=== PATIENT | male | born 1965 | race American Indian/Alaskan Native ===

== ENCOUNTER 2020-04-06 09:45 | Day surgery (SDC) | payer OTHER ==
[2020-04-05 11:14] LABS: CLARITY,URINE CLEAR (Clear); COLOR,URINE YELLOW (Yellow); GLUCOSE, URINE NEGATIVE (Neg); KETONES,URINE NEGATIVE (Neg); LEUKOCYTE ESTERASE ,URINE NEGATIVE (Neg); NITRITES, URINE NEGATIVE (Neg); OCCULT BLOOD,URINE NEGATIVE (Neg); PROTEIN,URINE NEGATIVE (Neg); UROBILINOGEN,URINE 0.2 E.U/dL (0.2-1.0)
[2020-04-05 11:15] LABS: UA COLLECTION TYPE CLN CATCH MIDSTREAM
[2020-04-05 11:18] LABS: BASOPHILS # (AUTO) 0.1 X10'3 (0-0.2); BASOPHILS % (AUTO) 0.7 % (0-1); EOSINOPHILS # (AUTO) 0.3 X10'3 (0-0.9); EOSINOPHILS % (AUTO) 3.7 % (0-6); LYMPHOCYTES # (AUTO) 2.8 X10'3 (1.1-4.8); LYMPHOCYTES % (AUTO) 33.2 % (21-51); MEAN CORPUSCULAR HEMOGLOBIN 31.7 PG (27.0-31.0); MEAN CORPUSCULAR HGB CONC 33.7 g/dL (33.0-36.5); MEAN CORPUSCULAR VOLUME 94.1 FL (78-98); MONOCYTES # (AUTO) 0.7 X10'3 (0-0.9); MONOCYTES % (AUTO) 8.7 % (2-12); NEUTROPHILS # (AUTO) 4.6 X10'3 (1.8-7.7); NEUTROPHILS % (AUTO) 53.7 % (42-75); PRE OP HEMATOCRIT 47.2 % (42.0-52.0); PRE OP HEMOGLOBIN 15.9 g/dL (14.0-17.9); PRE OP PLATELET COUNT 244 X10'3 (140-440); RED BLOOD COUNT 5.02 X10'6 (4.70-6.10); RED CELL DISTRIBUTION WIDTH 13.7 % (11.5-14.5)
[2020-04-05 11:25] LABS: ALBUMIN 3.7 G/DL (3.4-5.0); ALKALINE PHOSPHATASE 107 IU/L (46-116); BLOOD UREA NITROGEN 12 MG/DL (7-18); BUN/CREATININE RATIO 10.2 (5.4-32.0); CALCIUM 8.6 MG/DL (8.5-10.1); CHLORIDE 104 MMOL/L (99-107); CREATININE 1.18 MG/DL (0.60-1.10); PRE OP ALT 29 U/L (30-65); PRE OP ANION GAP 7 (8-16); PRE OP AST 20 U/L (10-37); PRE OP BILIRUB, TOTAL 0.4 MG/DL (0.0-1.0); PRE OP GLUCOSE 94 MG/DL (70-104); PRE OP POTASSIUM 3.9 MMOL/L (3.4-5.1); PRE OP SODIUM 141 MMOL/L (135-145); TOTAL CARBON DIOXIDE 30.1 MMOL/L (24-32); TOTAL PROTEIN 7.5 G/DL (6.4-8.2); eGFR 64 ML/MIN
[2020-04-06] VITALS (12 sets, daily range): BP systolic 117–130; BP diastolic 76–92
[~2020-04-06] VITALS: Ht 182.9 cm; Wt 90.7 kg
[~2020-04-06 09:45] MED LIST: ERGO400C PO; NORT25CA PO; OMEP10CA5 PO; THYR30TA2 PO; ceFAZolin 2gm in dextrose, iso 50 ML IV ONE; famotidine 20mg tablet PO ONE; ringers solution, lacted 1,000 ML IV SCH
[2020-04-06] MEDS ORDERED: bacitracin 15gm ointment TP ONE (11:50)
[2020-04-06] MEDS ORDERED: BUPIVAcaine/PF 2.5 mg/ml (0.25%) 30ml vial ONE (11:50)
[2020-04-06] MEDS ORDERED: sevoflurane 250ml liquid IH ONE (12:19)
[2020-04-06] MEDS ORDERED: fentaNYL/PF 50MCG/1 ML 2ML syringe ONE (12:26)
[2020-04-06] MEDS ORDERED: midazolam 2 mg/2 ml injection ONE (12:47)
[2020-04-06] MEDS ORDERED: dexamethasone sod phosphate 4mg/ml inj. ONE (13:02)
[2020-04-06] MEDS ORDERED: propofol inj 20 ML IV ONE (13:02)
[2020-04-06] MEDS ORDERED: LIDOcaine 2% (20mg/ml) 5ml vial ONE (13:02)
[2020-04-06] MEDS ORDERED: ROPIVAcaine 0.5% (5mg/ml) 30ml vial ONE ×2 (13:02)
[2020-04-06] MEDS ORDERED: ondansetron/PF 4mg/2ml inj ONE (13:03)
[2020-04-06] MEDS ORDERED: ringers solution, lacted 1,000 ML IV SCH (13:11)
[2020-04-06] MEDS ORDERED: morphine 4 MG/ML inj SYRINge IV PRN (13:15)
[2020-04-06] MEDS ORDERED: HYDROmorphone inj. 0.5 MG/0.5 ML DISP.SYRIN IV PRN ×2 (13:15)
[2020-04-06] MEDS ORDERED: acetaminophen 1,000mg/100ml IV 100 ML IV PRN (13:15)
[2020-04-06] MEDS ORDERED: proCHLORperazine 10 MG/2 ml inj IV PRN (13:15)
[2020-04-06] MEDS ORDERED: morphine 2 MG/ML inj. syringe IV PRN (13:15)
[2020-04-06] MEDS ORDERED: ondansetron/PF 4mg/2ml inj IV PRN (13:15)
[2020-04-06] MEDS ORDERED: HYDROcodone/acetaminophen 10/325mg tab PO ONE (15:20)
--- NOTE | 2020-04-06 15:23 | NUR ---
PT IS READY FOR DISCHARGE, BUT STATES HE HAS A 2 HOUR RIDE HOME AND NO PAIN MEDICATIONS WITH HIM. RN RECEIVED A VERBAL ORDER FOR A NORCO FROM DR COX PRIOR TO DISCHARGE.
--- NOTE | 2020-04-06 15:24 | NUR ---
PT MEETS DISCHARGE CRITERIA. PT IS AWAKE, UP INDEP'LY WITH USE OF CRUTCHES MAINTAINING NON WBING STATUS, IV REMOVED, DISCHARGE INSTRUCTIONS REVIEWED WITH PT AND GIVEN HARD COPY, WILY FLUIDS.
== END 2020-04-06 15:35 | disposition home or self-care (01) ==
LOC: PAS 09:45
PROVIDERS: ATTEND Podiatrist Foot & Ankle Surgery
DX: S82.861A Displaced Maisonneuve's fracture of right leg, initial encounter for closed fracture (principal); S93.421A Sprain of deltoid ligament of right ankle, initial encounter; G89.18 Other acute postprocedural pain; G47.33 Obstructive sleep apnea (adult) (pediatric); K21.9 Gastro-esophageal reflux disease without esophagitis; M19.90 Unspecified osteoarthritis, unspecified site; E03.9 Hypothyroidism, unspecified; Z88.8 Allergy status to other drugs, medicaments and biological substances; Z91.041 Radiographic dye allergy status; Z79.899 Other long term (current) drug therapy; Z98.890 Other specified postprocedural states; Z72.89 Other problems related to lifestyle; Z79.82 Long term (current) use of aspirin; Z83.3 Family history of diabetes mellitus; Z80.9 Family history of malignant neoplasm, unspecified; X58.XXXA Exposure to other specified factors, initial encounter; Y93.89 Activity, other specified; Y92.89 Other specified places as the place of occurrence of the external cause; Y99.8 Other external cause status
CPT/HCPCS: 27695; 27829; 36415; 64445; 64447; 73600; 76000; 80053; 81003; 82948; 85025; 93005; A6223; C1713; J0131; J1100; J1170; J2001; J2250; J2405; J2704; J3010; J3490; J7120; A4215; A4618; A6253; A6446; A6449; A7000; J2795

== ENCOUNTER 2021-11-12 10:33 | Outpatient (CLI) | payer OTHER ==
[2021-11-05 15:02] LABS: BASOPHILS # (AUTO) 0.1 X10'3 (0-0.2); BASOPHILS % (AUTO) 1.3 % (0-1); EOSINOPHILS # (AUTO) 0.3 X10'3 (0-0.9); EOSINOPHILS % (AUTO) 4.2 % (0-6); HEMATOCRIT 44.5 % (42.0-52.0); HEMOGLOBIN 15.1 g/dl (14.0-17.9); LYMPHOCYTES # (AUTO) 2.2 X10'3 (1.1-4.8); LYMPHOCYTES % (AUTO) 34.8 % (21-51); MEAN CORPUSCULAR HEMOGLOBIN 31.9 PG (27.0-31.0); MEAN CORPUSCULAR HGB CONC 33.9 g/dL (33.0-36.5); MEAN CORPUSCULAR VOLUME 94.2 FL (78-98); MEAN PLATELET VOLUME 7.6 FL (7.4-10.4); MONOCYTES # (AUTO) 0.6 X10'3 (0-0.9); MONOCYTES % (AUTO) 9.7 % (2-12); NEUTROPHILS # (AUTO) 3.2 X10'3 (1.8-7.7); PLATELET COUNT 284 X10'3 (140-440); RED BLOOD COUNT 4.72 X10'6 (4.70-6.10); RED CELL DISTRIBUTION WIDTH 13.9 % (11.5-14.5); WHITE BLOOD COUNT 6.4 X10'3 (4.5-11.0)
[2021-11-05 15:16] LABS: ALBUMIN 3.4 G/DL (3.4-5.0); ANION GAP 10 (8-16); BLOOD UREA NITROGEN 15 MG/DL (7-18); BUN/CREATININE RATIO 12.4 (5.4-32.0); CALCIUM 8.7 MG/DL (8.5-10.1); CHLORIDE 106 MMOL/L (99-107); CREATININE 1.21 MG/DL (0.60-1.10); GLUCOSE 109 MG/DL (70-104); POTASSIUM 4.3 MMOL/L (3.5-5.1); SODIUM 143 MMOL/L (135-145); TOTAL CARBON DIOXIDE 26.7 MMOL/L (24-32); eGFR 62 ML/MIN
[~2021-11-12 10:33] MED LIST changes: -ceFAZolin 2gm in dextrose, iso 50 ML IV ONE; -famotidine 20mg tablet PO ONE; -ringers solution, lacted 1,000 ML IV SCH
== END 2021-11-12 23:59 | disposition home or self-care (01) ==
LOC: RAD 10:33
PROVIDERS: ATTEND Thoracic Surgery (Cardiothoracic Vascular Surgery)
DX: R22.1 Localized swelling, mass and lump, neck (principal)
CPT/HCPCS: 36415; 70540; 80048; 85025

== ENCOUNTER 2021-11-25 05:43 | Inpatient (IN) | payer OTHER ==
[2021-11-22 13:18] LABS: BASOPHILS # (AUTO) 0.1 X10'3 (0-0.2); BASOPHILS % (AUTO) 0.8 % (0-1); EOSINOPHILS # (AUTO) 0.2 X10'3 (0-0.9); EOSINOPHILS % (AUTO) 2.4 % (0-6); LYMPHOCYTES # (AUTO) 2.2 X10'3 (1.1-4.8); LYMPHOCYTES % (AUTO) 32.8 % (21-51); MEAN CORPUSCULAR HEMOGLOBIN 31.4 PG (27.0-31.0); MEAN CORPUSCULAR HGB CONC 33.4 g/dL (33.0-36.5); MEAN PLATELET VOLUME 7.3 FL (7.4-10.4); MONOCYTES # (AUTO) 0.7 X10'3 (0-0.9); MONOCYTES % (AUTO) 9.9 % (2-12); NEUTROPHILS # (AUTO) 3.6 X10'3 (1.8-7.7); NEUTROPHILS % (AUTO) 54.1 % (42-75); PRE OP HEMATOCRIT 47.1 % (42.0-52.0); PRE OP HEMOGLOBIN 15.8 g/dL (14.0-17.9); PRE OP PLATELET COUNT 345 X10'3 (140-440); RED BLOOD COUNT 5.01 X10'6 (4.70-6.10); RED CELL DISTRIBUTION WIDTH 13.8 % (11.5-14.5)
[2021-11-22 13:25] LABS: PRE OP PROTIME 10.2 SECONDS (9.0-12.0)
[2021-11-22 13:32] LABS: ALBUMIN 3.5 G/DL (3.4-5.0); ALBUMIN/GLOBULIN RATIO 0.9 (1.1-1.5); ALKALINE PHOSPHATASE 98 IU/L (46-116); BLOOD UREA NITROGEN 10 MG/DL (7-18); BUN/CREATININE RATIO 10.2 (5.4-32.0); CALCIUM 8.8 MG/DL (8.5-10.1); CHLORIDE 106 MMOL/L (99-107); CREATININE 0.98 MG/DL (0.60-1.10); PRE OP ALT 35 U/L (30-65); PRE OP ANION GAP 8 (8-16); PRE OP AST 23 U/L (10-37); PRE OP BILIRUB, TOTAL 0.6 MG/DL (0.0-1.0); PRE OP GLUCOSE 106 MG/DL (70-104); PRE OP POTASSIUM 4.1 MMOL/L (3.4-5.1); PRE OP SODIUM 141 MMOL/L (135-145); TOTAL CARBON DIOXIDE 26.6 MMOL/L (24-32); TOTAL PROTEIN 7.6 G/DL (6.4-8.2); eGFR 79 ML/MIN
[2021-11-22 14:14] LABS: CLARITY,URINE CLEAR (Clear); COLOR,URINE YELLOW (Yellow); GLUCOSE, URINE NEGATIVE (Neg); KETONES,URINE NEGATIVE (Neg); LEUKOCYTE ESTERASE ,URINE NEGATIVE (Neg); NITRITES, URINE NEGATIVE (Neg); OCCULT BLOOD,URINE NEGATIVE (Neg); PH,URINE 7.5 (4.8-8.0); PROTEIN,URINE NEGATIVE (Neg)
[2021-11-22 14:16] LABS: UA COLLECTION TYPE CLN CATCH MIDSTREAM
[2021-11-25] VITALS (20 sets, daily range): BP systolic 109–136; BP diastolic 59–88
[~2021-11-25] VITALS: Ht 182.9 cm; Wt 88.9 kg
[~2021-11-25 05:43] MED LIST changes: -ERGO400C PO; +NO HOME MEDS; -NORT25CA PO; -OMEP10CA5 PO; -THYR30TA2 PO; +famotidine 20mg tablet PO ONE; +ringers solution, lacted 1,000 ML IV SCH
[2021-11-25] MEDS ORDERED: LIDOcaine 1% 30ml preserv. free vial ONE ×2 (06:39→08:49)
[2021-11-25] MEDS ORDERED: ceFAZolin 1000mg inj ONE (06:39)
[2021-11-25] MEDS ORDERED: epiNEPHrine 1 mg/ml inj ONE (06:39)
[2021-11-25] MEDS ORDERED: BUPIVAcaine 0.5% inj/PF 30 ML ONE ×2 (06:39→08:49)
[2021-11-25] MEDS ORDERED: cefazolin/dext.iso 2gm/50ml 50 ML IV ONE (06:58)
[2021-11-25] MEDS ORDERED: BUPIVAcaine/PF 5 MG/ML 10ML VIAL IJ ONE (07:32)
[2021-11-25] MEDS: morphine 2 MG/ML inj. syringe IV PRN ×3 (07:35→16:18)
[2021-11-25] MEDS ORDERED: fentaNYL /PF 50mcg/ml 5ml ampule ONE (07:58)
[2021-11-25] MEDS ORDERED: MIDAZolam 1 MG/ML 5ML VIAL ONE (07:58)
[2021-11-25] MEDS ORDERED: proCHLORperazine 10 MG/2 ml inj IV PRN (09:40)
[2021-11-25] MEDS ORDERED: ringers solution, lacted 1,000 ML IV SCH (09:40)
[2021-11-25] MEDS ORDERED: HYDROmorphone/PF 0.2 MG/ML SYRINGE IV PRN ×2 (09:40)
[2021-11-25] MEDS ORDERED: ondansetron/PF 4mg/2ml inj IV PRN ×2 (09:40→10:40)
[2021-11-25] MEDS ORDERED: morphine 2 MG/ML inj. syringe IV PRN ×2 (09:40→10:40)
[2021-11-25] MEDS ORDERED: rocuronium 10mg/ml inj IV ONE (10:27)
[2021-11-25] MEDS ORDERED: dexamethasone sod phosphate 4mg/ml inj. ONE (10:27)
[2021-11-25] MEDS ORDERED: propofol inj 20 ML IV ONE (10:27)
[2021-11-25] MEDS ORDERED: ondansetron/PF 4mg/2ml inj ONE (10:27)
[2021-11-25] MEDS ORDERED: glycopyrrolate 0.2mg/ml inj ONE (10:27)
[2021-11-25] MEDS ORDERED: neostigmine methylsulfate 1 MG/ML 10ml vial ONE (10:28)
[2021-11-25] MEDS ORDERED: metoclopramide 5 mg/ml inj IV PRN (10:40)
[2021-11-25] MEDS ORDERED: naloxone 0.4 mg/ml inj IV PRN (10:40)
[2021-11-25] MEDS ORDERED: morphine 4 MG/ML inj SYRINge IV PRN (10:40)
[2021-11-25] MEDS ORDERED: HYDROcodone/acetaminophen 10/325mg tab PO PRN (10:40)
[2021-11-25] MEDS ORDERED: CADD PCA waste documentation MC PRN (10:40)
[2021-11-25] MEDS ORDERED: BUPIVAcaine 0.5% inj/PF 30 ml vial IJ ONE (10:51)
[2021-11-25] MEDS: morphine 4 MG/ML inj SYRINge IV PRN ×2 (11:17→11:49)
--- NOTE | 2021-11-25 12:12 | NUR ---
Report called to receiving nurse. Transferred via [facility] . Special Issues communicated to receiving nurse.AWAKENS TO VOICE. VITALS STABLE. DRESSING DI. STATES PAIN IMPROVING. TO MARIANA RM [id number] AT THIS TIME.
[2021-11-25] MEDS: ceFAZolin inj. 1,000 MG in dextrose 5%-water 50ml 50 ML IV SCH (16:26)
[2021-11-25] MEDS: gabapentin 300mg capsule PO SCH (19:21)
[2021-11-25] MEDS: HYDROcodone/acetaminophen 10/325mg tab PO PRN (19:22)
[2021-11-25] MEDS: docusate sod 100mg capsule PO SCH (19:23)
[2021-11-25] MEDS: ketorolac tromethamine 15mg/ml inj. IV PRN (21:47)
[2021-11-26] MEDS: ceFAZolin inj. 1,000 MG in dextrose 5%-water 50ml 50 ML IV SCH ×2
[2021-11-26] MEDS ORDERED: ceFAZolin inj. 1,000 MG in dextrose 5%-water 50ml 50 ML IV SCH (01:03)
[2021-11-26] MEDS: HYDROcodone/acetaminophen 10/325mg tab PO PRN (01:34)
[2021-11-26 02:00] VITALS: BP 105/49
[2021-11-26] MEDS: ketorolac tromethamine 15mg/ml inj. IV PRN (05:19)
[2021-11-26 06:00] VITALS: BP 104/67
[2021-11-26 06:29] LABS: BASOPHILS % (AUTO) 0.3 % (0-1); EOSINOPHILS % (AUTO) 0.2 % (0-6); HEMATOCRIT 42.5 % (42.0-52.0); HEMOGLOBIN 14.2 g/dl (14.0-17.9); LYMPHOCYTES # (AUTO) 2.2 X10'3 (1.1-4.8); LYMPHOCYTES % (AUTO) 15.7 % (21-51); MEAN CORPUSCULAR HEMOGLOBIN 31.7 PG (27.0-31.0); MEAN CORPUSCULAR HGB CONC 33.5 g/dL (33.0-36.5); MEAN CORPUSCULAR VOLUME 94.7 FL (78-98); MEAN PLATELET VOLUME 7.8 FL (7.4-10.4); MONOCYTES # (AUTO) 1.3 X10'3 (0-0.9); MONOCYTES % (AUTO) 9.4 % (2-12); NEUTROPHILS # (AUTO) 10.3 X10'3 (1.8-7.7); NEUTROPHILS % (AUTO) 74.4 % (42-75); PLATELET COUNT 317 X10'3 (140-440); RED BLOOD COUNT 4.49 X10'6 (4.70-6.10); RED CELL DISTRIBUTION WIDTH 13.7 % (11.5-14.5); WHITE BLOOD COUNT 13.8 X10'3 (4.5-11.0)
[2021-11-26 06:38] LABS: ALBUMIN 2.9 G/DL (3.4-5.0); ALBUMIN/GLOBULIN RATIO 0.8 (1.1-1.5); ALKALINE PHOSPHATASE 73 IU/L (46-116); ANION GAP 6 (8-16); BLOOD UREA NITROGEN 16 MG/DL (7-18); BUN/CREATININE RATIO 16.2 (5.4-32.0); CALCIUM 8.4 MG/DL (8.5-10.1); CHLORIDE 105 MMOL/L (99-107); CREATININE 0.99 MG/DL (0.60-1.10); GLUCOSE 137 MG/DL (70-104); POTASSIUM 3.8 MMOL/L (3.5-5.1); SODIUM 138 MMOL/L (135-145); TOTAL CARBON DIOXIDE 27.2 MMOL/L (24-32); TOTAL PROTEIN 6.4 G/DL (6.4-8.2); eGFR 78 ML/MIN
[2021-11-26 06:44] LABS: ALANINE AMINOTRANSFERASE 24 U/L (12-78); ASPARTATE AMINO TRANSFERASE 31 U/L (10-37); BILIRUBIN,TOTAL 0.4 MG/DL (0.1-1.0)
[2021-11-26] MEDS ORDERED: HYDR-3972 PO (08:13)
[2021-11-26] MEDS ORDERED: IBUP-1984 PO (08:35)
[2021-11-26] MEDS: gabapentin 300mg capsule PO SCH (08:43)
[2021-11-26] MEDS: docusate sod 100mg capsule PO SCH (08:43)
[2021-11-26 10:00] VITALS: BP 101/63
[2021-11-26] MEDS: morphine 2 MG/ML inj. syringe IV PRN (12:26)
== END 2021-11-26 12:45 | disposition home or self-care (01) | DRG 572 ==
LOC: PAS IN 05:43 → MED 3N 12:27
PROVIDERS: ADMIT Thoracic Surgery (Cardiothoracic Vascular Surgery); ATTEND Thoracic Surgery (Cardiothoracic Vascular Surgery)
PROC: 0JB40ZZ Excision of Right Neck Subcutaneous Tissue and Fascia, Open Approach (ICD-10-PCS; principal; 2021-11-25 08:03)
DX: D17.0 Benign lipomatous neoplasm of skin and subcutaneous tissue of head, face and neck (principal); G47.30 Sleep apnea, unspecified; E03.9 Hypothyroidism, unspecified; M19.90 Unspecified osteoarthritis, unspecified site
CPT/HCPCS: 36415; 71045; 71046; 80053; 81003; 82948; 85025; 85610; 85730; 86885; 86900; 86901; 86920; 87081; 87635; 93005; A4618; A6258; A6449; A7000; C1751; G0378; J0171; J0690; J1100; J1170; J1885; J2250; J2270; J2405; J2704; J2710; J3010; J3490; J7030; J7040; J7050; J7060; J7120; S0020